=== PATIENT | female | born 1995 | race Caucasian/White ===

== ENCOUNTER 2017-07-13 02:57 | Observation (INO) | payer OTHER ==
[~2017-07-13] VITALS: Ht 154.9 cm; Wt 80.3 kg
[2017-07-13] MEDS ORDERED: PNV1TABL76 MT (03:11)
[2017-07-13] MEDS: BUTORPHANOL TARTRATE 2 MG/ML VIAL IV PRN ×2 (03:55→04:03)
[2017-07-13] MEDS: DEXT 5%/LACTATED RINGERS 1,000 ML IV SCH ×2 (03:55→04:04)
[2017-07-13 04:03] VITALS: BP 109/66
[2017-07-13 04:08] LABS: CLARITY URINE CLEAR (CLEAR); COLOR URINE YELLOW (YELLOW); GLUCOSE URINE NEGATIVE (NEGATIVE); KETONES URINE NEGATIVE (NEGATIVE); LEUKOCYTE ESTERASE URINE TRACE (NEGATIVE); NITRITE URINE NEGATIVE (NEGATIVE); OCCULT BLOOD URINE NEGATIVE (NEGATIVE); PH URINE 7.5 (4.5-8.0); PROTEIN URINE TRACE (NEGATIVE); SPECIFIC GRAVITY URINE 1.007 (1.005-1.030); UROBILINOGEN URINE 0.2 E.U./dL (0.2-1.0)
[2017-07-13 04:18] LABS: *AMPHETAMINES SCREEN URINE NEGATIVE (NEGATIVE); *BARBITURATES SCREEN URINE NEGATIVE (NEGATIVE); *BENZODIAZEPINES SCREEN URINE NEGATIVE (NEGATIVE); *COCAINE SCREEN URINE NEGATIVE (NEGATIVE); CANNABINOID URINE SCREEN NEGATIVE (NEGATIVE); METHADONE URINE SCREEN NEGATIVE (NEGATIVE); OPIATES URINE SCREEN NEGATIVE (NEGATIVE); PHENCYCLIDINE URINE SCREEN NEGATIVE (NEGATIVE)
[2017-07-13] MEDS ORDERED: CEFAZOLIN 2,000 MG in DEXT 5% WATER 100 ML IV ONE (06:30)
[2017-07-13] MEDS ORDERED: ALBU05 IH (10:33)
== END 2017-07-13 11:23 | disposition home or self-care (01) ==
LOC: L&D 02:57
PROVIDERS: ADMIT Obstetrics & Gynecology; ATTEND Obstetrics & Gynecology
DX: O26.893 Other specified pregnancy related conditions, third trimester (principal); R10.30 Lower abdominal pain, unspecified; Z3A.39 39 weeks gestation of pregnancy
CPT/HCPCS: 80305; 81001; 96365; 96375; 99281; G0378; J0595; J0690; 96360; J7060; J7120; J7121

== ENCOUNTER 2017-07-13 11:36 | Inpatient (IN) | payer MEDICAID, OTHER ==
[~2017-07-13] VITALS: Ht 154.9 cm; Wt 80.3 kg
[~2017-07-13 11:36] MED LIST: ALBU05 IH; PNV1TABL76 MT
[2017-07-13] MEDS ORDERED: HYDROCODONE/ACETAMINOPHEN 5/325MG TABLET PO ONE (13:15)
[2017-07-13 14:23] LABS: BASOPHILS % 0.7 % (0.0-2.0); EOSINOPHILS % 0.2 % (0.0-5.0); HEMATOCRIT. 29.1 % (36.0-48.0); HEMOGLOBIN. 9.4 g/dL (12.0-16.0); LYMPHOCYTES % 16.2 % (20.0-50.0); MEAN CORPUSCULAR HEMOGLOBIN 25.9 pg (28.0-32.0); MEAN CORPUSCULAR VOLUME 80.5 fL (81.0-99.0); MEAN PLATELET VOLUME 10.9 fl (7.4-10.4); MONOCYTES % 7.9 % (2.0-8.0); PLATELET 200 x1000/uL (130-400); RED BLOOD CELL COUNT 3.62 mill/uL (4.2-5.4); RED CELL DISTRIBUTION WIDTH 16.7 % (11.6-14.6)
[2017-07-13 14:29] LABS: CHLORIDE 108 mEq/L (98-107)
[2017-07-13 14:45] LABS: CARBON DIOXIDE 22 mEq/L (21-32)
[2017-07-13 14:53] LABS: B-HCG QUANTITATIVE 22634 mIU/mL (<3)
[2017-07-13] MEDS ORDERED: SODIUM CHLORIDE 0.9% 1,000 ML IV ONE (19:15)
[2017-07-13] MEDS ORDERED: ACETAMINOPHEN 325MG TABLET PO ONE (19:15)
[2017-07-13] MEDS: PRENATAL VIT/FE FUMARATE/FA TABLET PO SCH (22:17)
[2017-07-13] MEDS ORDERED: ACETAMINOPHEN 325MG TABLET PO PRN (23:30)
[2017-07-13] MEDS ORDERED: HYDROCODONE/ACETAMINOPHEN 5/325MG TABLET PO PRN (23:30)
[2017-07-13] MEDS ORDERED: ONDANSETRON HCL 4MG/2ML VIAL IV PRN (23:30)
[2017-07-13 23:34] VITALS: BP 100/58
[2017-07-14] VITALS: BP 100/58
[2017-07-14 04:00] VITALS: BP 101/54
[2017-07-14 06:21] LABS: CARBON DIOXIDE 22 mEq/L (21-32); CHLORIDE 107 mEq/L (98-107)
[2017-07-14 07:02] LABS: BASOPHILS % 0.4 % (0.0-2.0); EOSINOPHILS % 0.2 % (0.0-5.0); HEMATOCRIT. 28.3 % (36.0-48.0); HEMOGLOBIN. 8.8 g/dL (12.0-16.0); LYMPHOCYTES % 20.1 % (20.0-50.0); MEAN CORPUSCULAR HEMOGLOBIN 25.3 pg (28.0-32.0); MEAN CORPUSCULAR VOLUME 81.6 fL (81.0-99.0); MEAN PLATELET VOLUME 10.9 fl (7.4-10.4); MONOCYTES % 6.7 % (2.0-8.0); NEUTROPHILS % 72.6 % (40.0-76.0); PLATELET 200 x1000/uL (130-400); RED BLOOD CELL COUNT 3.47 mill/uL (4.2-5.4); RED CELL DISTRIBUTION WIDTH 16.9 % (11.6-14.6)
[2017-07-14 08:00] VITALS: BP 101/53
[2017-07-14] MEDS: PRENATAL VIT/FE FUMARATE/FA TABLET PO SCH (09:08)
[2017-07-14 12:00] VITALS: BP 98/50
[2017-07-14 12:47] VITALS: BP 98/65
== END 2017-07-14 13:35 | disposition home or self-care (01) | DRG 566 ==
LOC: ER 12:46 → ENRESERV 20:21 → 7WST 22:27
PROVIDERS: ADMIT Hospitalist; ATTEND Hospitalist
DX: O26.893 Other specified pregnancy related conditions, third trimester (principal); E83.51 Hypocalcemia; D64.9 Anemia, unspecified; S33.5XXA Sprain of ligaments of lumbar spine, initial encounter; X58.XXXA Exposure to other specified factors, initial encounter; O99.013 Anemia complicating pregnancy, third trimester; Z3A.39 39 weeks gestation of pregnancy; Z87.440 Personal history of urinary (tract) infections; Y93.89 Activity, other specified; Y92.89 Other specified places as the place of occurrence of the external cause; Y99.8 Other external cause status; O99.283 Endocrine, nutritional and metabolic diseases complicating pregnancy, third trimester
CPT/HCPCS: 36415; 72195; 76805; 76818; 80053; 84702; 85025; 96360; 99285; J7030

== ENCOUNTER 2017-07-19 08:47 | Inpatient (IN) | payer MEDICAID ==
[~2017-07-19] VITALS: Ht 154.9 cm; Wt 82.1 kg
[~2017-07-19 08:47] MED LIST changes: -ALBU05 IH
[2017-07-19] MEDS ORDERED: NALOXONE HCL 0.4 MG/ML 1ML VIAL IM PRN (10:00)
[2017-07-19] MEDS ORDERED: CARBOPROST TROMETHAMINE 250 MCG/ML AMPUL IM PRN (10:00)
[2017-07-19] MEDS ORDERED: METHYLERGONOVINE MALEATE 0.2 MG/ML IM PRN (10:00)
[2017-07-19] MEDS ORDERED: BUTORPHANOL TARTRATE 2 MG/ML VIAL IV PRN (10:00)
[2017-07-19] MEDS ORDERED: ONDANSETRON HCL 4MG/2ML VIAL IV PRN ×2 (10:00→11:30)
[2017-07-19] MEDS ORDERED: LIDOCAINE HCL 1% 20ML VIAL (Pyxis) INJ INFIL SCH (10:00)
[2017-07-19] MEDS ORDERED: MISOPROSTOL 100MCG TABLET VG SCH (10:00)
[2017-07-19] MEDS: DEXT 5%/LACTATED RINGERS 1,000 ML IV SCH ×3 (10:47→18:50)
[2017-07-19 10:49] LABS: BASOPHILS % 0.5 % (0.0-2.0); EOSINOPHILS % 0.1 % (0.0-5.0); HEMATOCRIT. 30.9 % (36.0-48.0); HEMOGLOBIN. 9.7 g/dL (12.0-16.0); MEAN CORPUSCULAR VOLUME 79.5 fL (81.0-99.0); MEAN PLATELET VOLUME 11.2 fl (7.4-10.4); MONOCYTES % 6.5 % (2.0-8.0); NEUTROPHILS % 83.9 % (40.0-76.0); PLATELET 223 x1000/uL (130-400); RED BLOOD CELL COUNT 3.89 mill/uL (4.2-5.4); RED CELL DISTRIBUTION WIDTH 16.8 % (11.6-14.6)
[2017-07-19] MEDS ORDERED: FENTANYL CITRATE/PF 50MCG/ML 2ML VIAL ONE ×2 (10:55→19:11)
[2017-07-19] MEDS ORDERED: BUPIVACAINE HCL/PF 0.25% (2.5MG/ML) 10ML ONE (10:56)
[2017-07-19 10:58] LABS: INR 0.9; PROTHROMBIN TIME 9.5 sec (9.4-11.6)
[2017-07-19] MEDS ORDERED: BUPIVACAINE HCL/NS/PF EPIDURAL 100 ML EP ONE ×2 (10:58→19:11)
[2017-07-19 11:00] LABS: GLUCOSE URINE NEGATIVE (NEGATIVE); KETONES URINE NEGATIVE (NEGATIVE); LEUKOCYTE ESTERASE URINE 3+ (NEGATIVE); NITRITE URINE NEGATIVE (NEGATIVE); OCCULT BLOOD URINE 2+ (NEGATIVE); PROTEIN URINE NEGATIVE (NEGATIVE); UROBILINOGEN URINE 0.2 E.U./dL (0.2-1.0)
[2017-07-19 11:09] LABS: CLARITY URINE CLOUDY (CLEAR); COLOR URINE YELLOW (YELLOW)
[2017-07-19 11:26] LABS: *AMPHETAMINES SCREEN URINE NEGATIVE (NEGATIVE); *BARBITURATES SCREEN URINE NEGATIVE (NEGATIVE); *BENZODIAZEPINES SCREEN URINE NEGATIVE (NEGATIVE); *COCAINE SCREEN URINE NEGATIVE (NEGATIVE); CANNABINOID URINE SCREEN NEGATIVE (NEGATIVE); METHADONE URINE SCREEN NEGATIVE (NEGATIVE); OPIATES URINE SCREEN NEGATIVE (NEGATIVE); PHENCYCLIDINE URINE SCREEN NEGATIVE (NEGATIVE)
[2017-07-19] MEDS ORDERED: BUPIVACAINE HCL/NS/PF EPIDURAL 100 ML EP SCH (11:30)
[2017-07-19] MEDS ORDERED: DIPHENHYDRAMINE 50MG/ML VIAL IM PRN (11:30)
[2017-07-19 14:02] LABS: RUBELLA IGG 56.1 IU/mL (4.99-10)
[2017-07-19 14:03] LABS: HEPATITIS B SURFACE ANTIGEN NEGATIVE
[2017-07-19] MEDS: DEXT 5%/LR + PITOCIN 20UNITS/L 1,000 ML IV SCH ×2 (14:13→23:31)
[2017-07-19] MEDS ORDERED: AMPICILLIN 2,000 MG in SODIUM CHLORIDE 0.9% 100 ML IV NR (20:30)
[2017-07-19] MEDS ORDERED: DEXT 5%/LR + PITOCIN 20UNITS/L 1,000 ML IV SCH (22:49)
[2017-07-19] MEDS ORDERED: IBUPROFEN 800MG TABLET PO PRN (23:00)
[2017-07-19] MEDS ORDERED: ACETAMINOPHEN WITH CODEINE 300/30MG TABLET PO PRN (23:00)
[2017-07-19] MEDS ORDERED: IBUPROFEN 400MG TABLET PO PRN (23:00)
[2017-07-19] MEDS ORDERED: BENZOCAINE/LANOLIN/ALOE VERA SPRAY TOP PRN (23:00)
[2017-07-19] MEDS ORDERED: RHO(D) IMMUNE GLOBULIN 300 MCG/SYR IM PRN (23:00)
[2017-07-20] VITALS (9 sets, daily range): BP systolic 90–113; BP diastolic 50–68
[2017-07-20] MEDS: AMPICILLIN 1,000 MG in SODIUM CHLORIDE 0.9% 50 ML IV SCH ×4 (02:00→20:09)
[2017-07-20 06:54] LABS: HEMATOCRIT. 24.5 % (36.0-48.0); HEMOGLOBIN. 7.7 g/dL (12.0-16.0); MEAN CORPUSCULAR HEMOGLOBIN 25.2 pg (28.0-32.0); MEAN CORPUSCULAR VOLUME 79.9 fL (81.0-99.0); MEAN PLATELET VOLUME 10.6 fl (7.4-10.4); PLATELET 177 x1000/uL (130-400); RED BLOOD CELL COUNT 3.07 mill/uL (4.2-5.4); RED CELL DISTRIBUTION WIDTH 17.2 % (11.6-14.6)
[2017-07-20 16:36] LABS: PLATELET ESTIMATE NORMAL
[2017-07-21] MEDS: AMPICILLIN 1,000 MG in SODIUM CHLORIDE 0.9% 50 ML IV SCH ×2 (03:17→08:44)
[2017-07-21 07:32] VITALS: BP 100/54
[2017-07-21 07:45] LABS: BASOPHILS % 0.3 % (0.0-2.0); EOSINOPHILS % 0.5 % (0.0-5.0); HEMATOCRIT. 22.6 % (36.0-48.0); HEMOGLOBIN. 7.1 g/dL (12.0-16.0); LYMPHOCYTES % 11.7 % (20.0-50.0); MEAN CORPUSCULAR HEMOGLOBIN 25.3 pg (28.0-32.0); MEAN CORPUSCULAR VOLUME 80.4 fL (81.0-99.0); MEAN PLATELET VOLUME 10.3 fl (7.4-10.4); NEUTROPHILS % 81.5 % (40.0-76.0); PLATELET 192 x1000/uL (130-400); RED BLOOD CELL COUNT 2.82 mill/uL (4.2-5.4); RED CELL DISTRIBUTION WIDTH 17.1 % (11.6-14.6)
[2017-07-21] MEDS ORDERED: AMOXICILLIN 500 MG CAPSULE PO SCH ×2 (15:30→22:00)
[2017-07-21 16:04] VITALS: BP 92/50
[2017-07-21 20:00] VITALS: BP 112/66
== END 2017-07-21 21:50 | disposition home or self-care (01) | DRG 560 ==
LOC: OBSVTOIN 08:47 → L&D 08:47 → 7EST PP/OB 07-20 00:52
PROVIDERS: ADMIT Obstetrics & Gynecology; ATTEND Obstetrics & Gynecology
PROC: 0W8NXZZ Division of Female Perineum, External Approach (ICD-10-PCS; 2017-07-19)
PROC: 3E0S3CZ (ICD-10-PCS; 2017-07-19)
PROC: 00HU33Z Insertion of Infusion Device into Spinal Canal, Percutaneous Approach (ICD-10-PCS; 2017-07-19)
PROC: 10E0XZZ Delivery of Products of Conception, External Approach (ICD-10-PCS; principal; 2017-07-19 22:21)
DX: O41.1230 Chorioamnionitis, third trimester, not applicable or unspecified (principal); E66.01 Morbid (severe) obesity due to excess calories; O69.1XX0 Labor and delivery complicated by cord around neck, with compression, not applicable or unspecified; O99.214 Obesity complicating childbirth; Z37.0 Single live birth; Z3A.40 40 weeks gestation of pregnancy; Z91.018 Allergy to other foods; Z68.34 Body mass index [BMI] 34.0-34.9, adult
CPT/HCPCS: 36415; 80051; 80305; 81001; 85025; 85610; 85730; 86592; 86703; 86762; 86850; 86900; 87040; 87070; 87086; 87340; C1893; J0290; J1200; J2405; J2590; J3010; J3490; J7030; J7050; J7120; J7121; A4315

== ENCOUNTER 2019-03-19 15:09 | Inpatient (IN) | payer MEDICAID ==
[~2019-03-19] VITALS: Ht 160 cm; Wt 86.6 kg
[2019-03-19] MEDS ORDERED: LIDOCAINE HCL 1% 20ML VIAL (Pyxis) INJ INFIL SCH (17:00)
[2019-03-19] MEDS ORDERED: NALOXONE HCL 0.4 MG/ML 1ML VIAL IM PRN (17:00)
[2019-03-19] MEDS ORDERED: CARBOPROST TROMETHAMINE 250 MCG/ML AMPUL IM PRN (17:00)
[2019-03-19] MEDS ORDERED: BUTORPHANOL TARTRATE 2 MG/ML VIAL IV PRN (17:00)
[2019-03-19] MEDS ORDERED: METHYLERGONOVINE MALEATE 0.2 MG/ML IM PRN (17:00)
[2019-03-19] MEDS ORDERED: DINOPROSTONE 10MG VAGINAL INSERT VG NR (17:30)
[2019-03-19] MEDS: LACTATED RINGERS 1,000 ML IV SCH ×2 (17:33→23:16)
[2019-03-19 17:44] LABS: BASOPHILS % 0.2 % (0.0-2.0); EOSINOPHILS % 0.3 % (0.0-5.0); HEMATOCRIT. 30.3 % (36.0-48.0); HEMOGLOBIN. 9.8 g/dL (12.0-16.0); MEAN CORPUSCULAR HEMOGLOBIN 27.5 pg (28.0-32.0); MEAN CORPUSCULAR VOLUME 84.3 fL (81.0-99.0); MEAN PLATELET VOLUME 10.1 fl (7.4-10.4); MONOCYTES % 6.2 % (2.0-8.0); NEUTROPHILS % 81.3 % (40.0-76.0); PLATELET 183 x1000/uL (130-400); RED BLOOD CELL COUNT 3.59 mill/uL (4.2-5.4)
[2019-03-19 17:52] LABS: INR 0.9; PARTIAL THROMBOPLASTIN TIME 29.2 sec (23.4-31.0); PROTHROMBIN TIME 9.4 sec (9.6-11.0)
[2019-03-19 18:33] LABS: HEPATITIS B SURFACE ANTIGEN NEGATIVE
[2019-03-19 18:55] LABS: CLARITY URINE CLEAR (CLEAR); COLOR URINE YELLOW (YELLOW); KETONES URINE NEGATIVE (NEGATIVE); LEUKOCYTE ESTERASE URINE 3+ (NEGATIVE); NITRITE URINE NEGATIVE (NEGATIVE); OCCULT BLOOD URINE NEGATIVE (NEGATIVE); PROTEIN URINE NEGATIVE (NEGATIVE); SPECIFIC GRAVITY URINE 1.003 (1.005-1.030); UROBILINOGEN URINE 0.2 E.U./dL (0.2-1.0)
[2019-03-19 19:06] LABS: *BENZODIAZEPINES SCREEN URINE NEGATIVE (NEGATIVE); *COCAINE SCREEN URINE NEGATIVE (NEGATIVE); METHADONE URINE SCREEN NEGATIVE (NEGATIVE); OPIATES URINE SCREEN NEGATIVE (NEGATIVE)
[2019-03-19 19:07] LABS: *AMPHETAMINES SCREEN URINE NEGATIVE (NEGATIVE); *BARBITURATES SCREEN URINE NEGATIVE (NEGATIVE); CANNABINOID URINE SCREEN NEGATIVE (NEGATIVE); PHENCYCLIDINE URINE SCREEN NEGATIVE (NEGATIVE)
[2019-03-20] MEDS: LACTATED RINGERS 1,000 ML IV SCH ×4 (07:23→16:57)
[2019-03-20] MEDS: DEXT 5%/LR + PITOCIN 20UNITS/L 1,000 ML IV SCH ×2 (07:24→22:17)
[2019-03-20] MEDS ORDERED: ROPIVACAINE HCL 2MG/ML (0.2%) 200ML BOTTLE IR ONE (14:30)
[2019-03-20] MEDS ORDERED: ROPIVACAINE HCL IR SCH (14:45)
[2019-03-20] MEDS ORDERED: ROPIVACAINE HCL/PF EPIDURAL 200 ML EPI SCH (14:45)
[2019-03-20] MEDS ORDERED: FENTANYL CITRATE/PF 50MCG/ML 2ML VIAL ONE (14:51)
[2019-03-20] MEDS ORDERED: BUPIVACAINE HCL/PF 0.25% (2.5MG/ML) 10ML ONE (14:53)
[2019-03-20] MEDS ORDERED: EPHEDRINE SULFATE 50MG/ML VIAL ONE (15:55)
[2019-03-20] MEDS ORDERED: SODIUM CHLORIDE 0.9% 10ML VIAL ONE (15:55)
[2019-03-20] MEDS ORDERED: IBUPROFEN 400MG TABLET PO PRN (21:00)
[2019-03-20] MEDS ORDERED: RHO(D) IMMUNE GLOBULIN 300 MCG/SYR IM PRN (21:00)
[2019-03-20] MEDS ORDERED: IBUPROFEN 800MG TABLET PO PRN (21:00)
[2019-03-20] MEDS ORDERED: BENZOCAINE/LANOLIN/ALOE VERA SPRAY TOP PRN (21:00)
[2019-03-20] MEDS ORDERED: ACETAMINOPHEN WITH CODEINE 300/30MG TABLET PO PRN (21:00)
[2019-03-20] MEDS ORDERED: DEXT 5%/LR + PITOCIN 20UNITS/L 1,000 ML IV SCH (21:00)
[2019-03-20] MEDS ORDERED: METHYLERGONOVINE MALEATE 0.2 MG/ML IM NR (21:15)
[2019-03-20] MEDS ORDERED: ONDANSETRON HCL 4MG/2ML INJ IV NR (22:15)
[2019-03-20] MEDS ORDERED: ACETAMINOPHEN 325MG TABLET PO NR (22:15)
[2019-03-20] MEDS ORDERED: CEFAZOLIN 1,000 MG in DEXT 5% WATER 100 ML IV SCH (22:30)
[2019-03-20 23:16] VITALS: BP 113/70
[2019-03-21 00:10] VITALS: BP 108/61
[2019-03-21] MEDS ORDERED: CEFAZOLIN 2000MG PREMIX 50 ML IV SCH (01:00)
[2019-03-21] MEDS ORDERED: CEFAZOLIN 2,000 MG in DEXT 5% WATER 100 ML IV SCH (01:30)
[2019-03-21 03:20] VITALS: BP 118/72
[2019-03-21 06:18] LABS: HEMATOCRIT. 26.9 % (36.0-48.0); HEMOGLOBIN. 8.7 g/dL (12.0-16.0); MEAN CORPUSCULAR HEMOGLOBIN 27.4 pg (28.0-32.0); MEAN CORPUSCULAR VOLUME 84.9 fL (81.0-99.0); MEAN PLATELET VOLUME 10.3 fl (7.4-10.4); PLATELET 139 x1000/uL (130-400); RED BLOOD CELL COUNT 3.18 mill/uL (4.2-5.4); RED CELL DISTRIBUTION WIDTH 16.4 % (11.6-14.6)
[2019-03-21] MEDS: CEFAZOLIN 1000MG PREMIX 50 ML IV SCH ×3 (08:12→20:46)
[2019-03-21 08:15] VITALS: BP 111/69
[2019-03-21 14:40] LABS: PLATELET ESTIMATE NORMAL
[2019-03-21 20:45] VITALS: BP 98/59
[2019-03-22] MEDS: CEFAZOLIN 1000MG PREMIX 50 ML IV SCH ×2 (02:44→08:17)
[2019-03-22 04:00] VITALS: BP 100/62
[2019-03-22 08:00] VITALS: BP 98/52
[2019-03-22] MEDS ORDERED: MEDROXYPROGESTERONE ACETATE 150MG/ML VIAL IM SCH (11:00)
== END 2019-03-22 12:30 | disposition home or self-care (01) | DRG 560 ==
LOC: OBSVTOIN 15:09 → 8 EST LDRP 15:09 → 8EST 03-20 23:15
PROVIDERS: ADMIT Obstetrics & Gynecology; ATTEND Obstetrics & Gynecology
PROC: 10D07Z6 Extraction of Products of Conception, Vacuum, Via Natural or Artificial Opening (ICD-10-PCS; principal; 2019-03-20)
PROC: 3E033VJ Introduction of Other Hormone into Peripheral Vein, Percutaneous Approach (ICD-10-PCS; 2019-03-20)
PROC: 3E0R3BZ Introduction of Anesthetic Agent into Spinal Canal, Percutaneous Approach (ICD-10-PCS; 2019-03-20)
PROC: 00HU33Z Insertion of Infusion Device into Spinal Canal, Percutaneous Approach (ICD-10-PCS; 2019-03-20)
PROC: 0HQ9XZZ Repair Perineum Skin, External Approach (ICD-10-PCS; 2019-03-20)
DX: O41.03X0 Oligohydramnios, third trimester, not applicable or unspecified (principal); D64.9 Anemia, unspecified; O69.1XX0 Labor and delivery complicated by cord around neck, with compression, not applicable or unspecified; O77.0 Labor and delivery complicated by meconium in amniotic fluid; O99.02 Anemia complicating childbirth; O76 Abnormality in fetal heart rate and rhythm complicating labor and delivery; O70.0 First degree perineal laceration during delivery; Z37.0 Single live birth; Z3A.38 38 weeks gestation of pregnancy
CPT/HCPCS: 36415; 76815; 76818; 80305; 86592; 86703; 86762; 86850; 86900; 87070; 87340; 99281; J0690; J1050; J2210; J2405; J2590; J2795; J3010; J3490; J7060; A4315

== ENCOUNTER 2019-04-10 01:49 | Emergency (ER) | payer MEDICAID ==
[~2019-04-10] VITALS: Ht 162.6 cm; Wt 64.0 kg
[2019-04-10] MEDS ORDERED: ONDANSETRON HCL 4MG/2ML INJ IV STA (02:13)
[2019-04-10] MEDS ORDERED: SODIUM CHLORIDE 0.9% 1,000 ML IV ONE (02:13)
[2019-04-10] MEDS ORDERED: MORPHINE SULFATE 4 MG/ML CPJ (NOT FOR IM USE) IV STA (02:13)
[2019-04-10 02:53] LABS: CHLORIDE 112 mEq/L (98-107)
[2019-04-10 02:59] LABS: BASOPHILS % 1.2 % (0.0-2.0); EOSINOPHILS % 1.9 % (0.0-5.0); HEMATOCRIT. 35.6 % (36.0-48.0); LYMPHOCYTES % 32.2 % (20.0-50.0); MEAN CORPUSCULAR HEMOGLOBIN 27.9 pg (28.0-32.0); MEAN CORPUSCULAR VOLUME 82.7 fL (81.0-99.0); MEAN PLATELET VOLUME 9.7 fl (7.4-10.4); MONOCYTES % 5.5 % (2.0-8.0); NEUTROPHILS % 59.2 % (40.0-76.0); PLATELET 374 x1000/uL (130-400); RED BLOOD CELL COUNT 4.31 mill/uL (4.2-5.4); RED CELL DISTRIBUTION WIDTH 16.4 % (11.6-14.6)
[2019-04-10 03:17] LABS: CLARITY URINE CLEAR (CLEAR); COLOR URINE YELLOW (YELLOW); KETONES URINE NEGATIVE (NEGATIVE); LEUKOCYTE ESTERASE URINE 2+ (NEGATIVE); NITRITE URINE NEGATIVE (NEGATIVE); OCCULT BLOOD URINE 3+ (NEGATIVE); PROTEIN URINE NEGATIVE (NEGATIVE); SPECIFIC GRAVITY URINE 1.019 (1.005-1.030); UROBILINOGEN URINE 0.2 E.U./dL (0.2-1.0)
[2019-04-10] MEDS ORDERED: IOHEXOL-300 100 ML BOTTLE ONE (05:35)
[2019-04-10 05:59] VITALS: BP 121/62
== END 2019-04-10 06:06 | disposition home or self-care (01) ==
LOC: ER 01:49
DX: K80.20 Calculus of gallbladder without cholecystitis without obstruction (principal)
CPT/HCPCS: 36415; 74177; 76705; 80053; 81003; 81025; 83605; 83690; 85025; 96374; 96375; 99284; J2270; J2405; J7030; Q9967; Z7610